=== PATIENT | female | born 1960 | race Caucasian/White ===

== ENCOUNTER 2016-07-22 17:31 | Emergency (ER) | payer MEDICARE ==
[2016-07-22 19:30] LABS: BUN/CREATININE RATIO 20 (0-10)
[2016-07-22 20:17] LABS: HEMOGLOBIN 15.3 gm/dl (12.3-15.3); WHITE BLOOD COUNT 11.5 K/UL (4.5-11.0)
== END 2016-07-23 00:35 | disposition home or self-care (01) ==
LOC: ER1 17:31
PROVIDERS: Emergency Medicine
DX: R51 Headache (principal); R11.2 Nausea with vomiting, unspecified; H57.8 Other specified disorders of eye and adnexa; E03.9 Hypothyroidism, unspecified; Z90.49 Acquired absence of other specified parts of digestive tract; Z88.5 Allergy status to narcotic agent; Z88.8 Allergy status to other drugs, medicaments and biological substances; Z79.899 Other long term (current) drug therapy
CPT/HCPCS: 36415; 70450; 80053; 81001; 83690; 84484; 85025; 87086; 93005; 96374; 96375; 99284; J1100; J1885; J2405; J7030